=== PATIENT | female | born 2000 | race Caucasian/White ===

== ENCOUNTER 2021-05-07 22:34 | Emergency (ER) | payer OTHER ==
[2021-05-07] MEDS ORDERED: Ibuprofen 200 MG TAB ONE (23:19)
[2021-05-07] MEDS ORDERED: Silver Sulfadiazine 50 GM TUBE ONE (23:19)
[2021-05-07] MEDS ORDERED: Boostrix 0.5 ML (Tdap) VIAL ONE (23:19)
== END 2021-05-07 23:50 | disposition home or self-care (01) ==
LOC: CSHERS 22:34
DX: T24.111A Burn of first degree of right thigh, initial encounter (principal); T22.112A Burn of first degree of left forearm, initial encounter; T22.111A Burn of first degree of right forearm, initial encounter; Z23 Encounter for immunization; X12.XXXA Contact with other hot fluids, initial encounter
CPT/HCPCS: 16000; 90471; 90715